=== PATIENT | male | born 2000 | race American Indian/Alaskan Native ===

== ENCOUNTER 2021-12-26 07:55 | Outpatient (CLI) | payer MEDICAID ==
[2021-12-26 08:30] LABS: ABG Base Excess -0.3 mmol/L (-2.0-3.0); ABG HCO3 23.9 mmol/L (20.0-26.0); ABG Methemoglobin 0.6 % (0.0-1.5); ABG Oxygen Saturation 98.2 % (95.0-99.0); ABG PCO2 37.8 mm Hg; ABG PH 7.419 pH Units (7.350-7.450)
[2021-12-26 08:32] LABS: Hematocrit 43.6 % (35.5-45.6); Hemoglobin 15.1 gm/dl (11.8-15.2); Mean Corpuscular HGB Conc 35 % (32-34); Mean Corpuscular Volume 92 fl (84-94); Platelet Count 279 K/mm3 (140-440); Red Blood Count 4.72 M/mm3 (3.65-5.03)
[2021-12-26 08:57] LABS: Alanine Aminotransferase 18 units/L (7-56); Albumin 4.7 g/dL (3.9-5); Blood Urea Nitrogen 15 mg/dL (9-20); Calcium 9.7 mg/dL (8.4-10.2); HDL Cholesterol 46 mg/dL (40-59); Hemolysis Index 8; LDL Cholesterol,Direct 85 mg/dL (50-130)
[2021-12-26 08:59] LABS: BUN/Creatinine Ratio 25
--- NOTE | 2021-12-26 09:57 | XRay Report ---
CHEST 2 VIEWS INDICATION / CLINICAL INFORMATION: J45.909 ASTHMA. COMPARISON: None available. FINDINGS: SUPPORT DEVICES: None. HEART / MEDIASTINUM: No significant abnormality. LUNGS / PLEURA: No significant pulmonary or pleural abnormality. No pneumothorax. ADDITIONAL FINDINGS: Scoliosis seen in the thoracic spine. IMPRESSION: 1. No acute findings. Signer Name: Ravinder Figueroa MD Signed: 12/26/2021 9:53 AM Workstation Name: [id number]
== END 2021-12-26 07:56 | disposition home or self-care (01) ==
LOC: LAB 07:55
PROVIDERS: ATTEND Internal Medicine
DX: J45.909 Unspecified asthma, uncomplicated (principal); M41.84 Other forms of scoliosis, thoracic region; G80.9 Cerebral palsy, unspecified; K21.9 Gastro-esophageal reflux disease without esophagitis; R62.50 Unspecified lack of expected normal physiological development in childhood
CPT/HCPCS: 36415; 36600; 71046; 80053; 80061; 82785; 82803; 84436; 84443; 85027